=== PATIENT | female | born 1970 | race Caucasian/White ===

== ENCOUNTER 2017-07-05 18:02 | Emergency (ER) | payer OTHER ==
--- NOTE | 2017-07-05 18:13 | ER Document Report ---
ED Extremity Problem, Lower - General Mode of Arrival: Medic Information source: Patient - HPI Patient complains to provider of: Pain, Swelling Location: Ankle - left <DEEPA JOSHI - Last Filed: 07/05/17 20:38> <PEREZ SCHAFFER - Last Filed: 07/05/17 22:28> - General Chief Complaint: Ankle Injury Stated Complaint: LEFT ANKLE INJURY Time Seen by Provider: 07/05/17 18:08 Notes: Patient is a 46 year old female that presents to the emergency department today with complaints of left ankle pain. Patient states she did not see the last step and rolled her ankle falling down to the ground. Patient states she is mildly nauseated. Patient denies hitting her head during the fall or any syncopal event. (DEEPA JOSHI) - Related Data Allergies/Adverse Reactions: No Known Allergies Allergy (Unverified 07/05/17 18:18) Past Medical History - General Information source: Patient - Social History Smoking Status: Never Smoker Frequency of alcohol use: None Drug Abuse: None Lives with: Family Family History: Reviewed & Not Pertinent - Medical History Medical History: Negative Surgical Hx: Negative <DEEPA JOSHI - Last Filed: 07/05/17 20:38> Review of Systems - Review of Systems Constitutional: No symptoms reported EENT: No symptoms reported Cardiovascular: No symptoms reported Respiratory: No symptoms reported Gastrointestinal: No symptoms reported Genitourinary: No symptoms reported Female Genitourinary: No symptoms reported Musculoskeletal: See HPI, Joint pain - left ankle Skin: No symptoms reported Hematologic/Lymphatic: No symptoms reported Neurological/Psychological: No symptoms reported -: Yes All other systems reviewed and negative <DEEPA JOSHI - Last Filed: 07/05/17 20:38> Physical Exam <DEEPA JOSHI - Last Filed: 07/05/17 20:38> <PEREZ SCHAFFER - Last Filed: 07/05/17 22:28> - Vital signs Vitals: Temp Pulse Resp BP Pulse Ox 98.8 F 92 16 107/73 91 L 07/05/17 18:32 07/05/17 18:32 07/05/17 18:32 07/05/17 18:32 07/05/17 18:32 - Notes Notes: Physical Exam: General: Alert, appears well. HEENT: Normocephalic. Atraumatic. PERRLA. Extraocular movements intact. Oropharynx clear. Neck: Supple. Respiratory: No respiratory distress. Abdominal: Normal Inspection. No distension. Extremities: Left ankle swelling over the lateral malleolus. Decreased ROM secondary to pain. Neurological: Cranial nerves II-XII grossly intact bilaterally. Normal cognition. AAOx4. Normal speech. Psychological: Normal affect. Normal Mood. Skin: Warm. Dry. Normal color. (DEEPA JOSHI) Course <DEEPA JOSHI - Last Filed: 07/05/17 20:38> - Diagnostic Test Radiology reviewed: Reports reviewed <PEREZ SCHAFFER - Last Filed: 07/05/17 22:28> - Re-evaluation Re-evalutation: 07/05/17 Patient with no acute findings on x-ray. No fracture. Patient placed an Baltazar and ankle stirrup. Stable for discharge. Return for any worsening or concerning symptoms. (PEREZ SCHAFFER) - Vital Signs Vital signs: Temp Pulse Resp BP Pulse Ox 98.8 F 92 16 107/73 91 L 07/05/17 18:32 07/05/17 18:32 07/05/17 18:32 07/05/17 18:32 07/05/17 18:32 Procedures - Immobilization Left Ankle Pre-Proc Neuro Vasc Exam: Normal Immobilizer type: Baltazar wrap, Ankle stirrup Performed by: PCT Post-Proc Neuro Vasc Exam: Normal Alignment checked and good: Yes <PEREZ SCHAFFER - Last Filed: 07/05/17 22:28> Discharge <DEEPA JOSHI - Last Filed: 07/05/17 20:38> <PEREZ SCHAFFER - Last Filed: 07/05/17 22:28> - Discharge Clinical Impression: Ankle sprain Qualifiers: Encounter type: initial encounter Involved ligament of ankle: unspecified ligament Laterality: left Qualified Code(s): S93.402A - Sprain of unspecified ligament of left ankle, initial encounter Condition: Stable Disposition: HOME, SELF-CARE Instructions: Baltazar Wrap (OM), Ankle Stirrup Splint (OM), Ice & Elevation (OM) , Sprained Ankle (OM) Additional Instructions: Please follow-up with your primary care doctor when you get home to [place]. Please follow-up with an orthopedic doctor in your area if there are any further concerns. Eliezer Attestation: 07/05/17 22:27 I personally performed the services described in the documentation, reviewed and edited the documentation which was dictated to the scribe in my presence, and it accurately records my words and actions. (PEREZ SCHAFFER) Scribe Documentation - Scribe Written by Eliezer:: Eliezer Reyes, 07/05/2017 181 acting as scribe for :: Oscar <DEEPA JOSHI - Last Filed: 07/05/17 20:38>
[2017-07-05] MEDS ORDERED: KETOROLAC TROMETHAMINE INJ/PF 30 MG/1 ML SDV IV ONE (18:18)
[2017-07-05 18:34] VITALS: BP 107/73
--- NOTE | 2017-07-05 18:54 | RADIOLOGY REPORT (SQ) ---
EXAM DESCRIPTION: ANKLE LEFT COMPLETE COMPLETED DATE/TIME: 07/05/2017 6:46 pm REASON FOR STUDY: injury, pain COMPARISON: None. NUMBER OF VIEWS: Three views. TECHNIQUE: AP, lateral, and oblique radiographic images acquired of the left ankle. LIMITATIONS: None. FINDINGS: MINERALIZATION: Normal. BONES: No acute fracture or dislocation. No worrisome bone lesions. JOINTS: No effusions. SOFT TISSUES: There is soft tissue swelling. OTHER: No other significant finding. IMPRESSION: Soft tissue swelling without evidence for fracture. TECHNICAL DOCUMENTATION: JOB ID: [id number] [employer]- All Rights Reserved
== END 2017-07-05 19:30 | disposition home or self-care (01) ==
LOC: ER 18:02
DX: S93.402A Sprain of unspecified ligament of left ankle, initial encounter (principal); W10.9XXA Fall (on) (from) unspecified stairs and steps, initial encounter
CPT/HCPCS: 99283; 96374; 73610; L1902; J1885; L4350